=== PATIENT | male | born 1960 | race African-American/Black ===

== ENCOUNTER 2018-08-09 10:55 | Emergency (ER) | payer OTHER ==
[~2018-08-09] VITALS: Ht 172.7 cm; Wt 81.7 kg
--- NOTE | ~2018-08-09 | EKG ---
[place] [address] [facility] [address] ELECTROCARDIOGRAM REPORT Name: MADDI VASQUEZ [id number] Admission: 08/09/18 Attend Phys: Discharge: 08/09/18 Date of : 62 Report #: [id number] THIS REPORT FOR: //name// [facility] ED Test Date: 2018-08-09 Test Time: 11:31:13 Pat Name: MADDI VASQUEZ Department: Room: Gender: M [employer]: PREM : 1960 Requested By: Gissell Vinson Order Number: [id number] MD: Josesito Masters Measurements Intervals [place] Rate: 71 P: 52 CA: 155 QRS: -63 QRSD: 92 T: 34 QT: 360 QTc: 392 Interpretive Statements Sinus rhythm Left anterior fascicular block Abnormal R-wave progression, late transition Compared to ECG 06/07/2016 10:04:51 No significant changes Electronically Signed On 08-10-2018 11:03:04 CDT by Josesito Masters [email or web address] <ELECTRONICALLY SIGNED> By: Josesito Masters MD 08/10/18 1103 1130 30 Josesito Masters MD /EFRAÍN
[~2018-08-09 10:55] MED LIST: CELEBREX 200 M200 M1 PO; GLUCOTROL5 MG PO; IBUPROFEN 600600 M1 PO; METFORMIN HCL500 MG PO; NEXIUM40 MG PO; NORCO 5-325 TA1 EACH PO; PIOGLITAZONE15 MG
[2018-08-09 11:42] LABS: BASOPHILS 1.1 % (0.0-2.0); EOSINOPHILS 1.7 % (0.0-3.0); HEMATOCRIT 40.2 % (42.0-52.0); HEMOGLOBIN 13.5 gm/dL (14.0-18.0); LYMPHOCYTES 29.3 % (24.0-44.0); MCH 27.1 pg (26.0-34.0); MCHC 33.5 g/dL (28.0-37.0); MCV 80.9 fL (80.0-100.0); MONOCYTES 8.5 % (1.0-8.0); PLATELET COUNT 275 thou/uL (150-400); POLYS 59.4 % (36.0-66.0); RBC 4.97 mil/uL (4.50-6.00); RDW 15.6 % (10.5-14.5); WBC 5.1 thou/uL (4.0-11.0)
[2018-08-09 11:53] LABS: ANION GAP 8 mmol/L (7-16); BUN 15 mg/dL (7-18); CALCIUM 10.5 mg/dL (8.5-10.1); CHLORIDE 105 mmol/L (98-107); CO2 27 mmol/L (21-32); CREATININE 0.9 mg/dL (0.7-1.3); GLUCOSE 96 mg/dL (74-106); POTASSIUM 3.9 mmol/L (3.5-5.1); SODIUM 140 mmol/L (136-145)
[2018-08-09 12:01] LABS: ALBUMIN 3.8 g/dL (3.4-5.0); SGOT 17 U/L (15-37); SGPT 26 U/L (30-65); TOTAL BILIRUBIN 0.4 mg/dL (<0.1-1.0); TOTAL PROTEIN 7.5 g/dL (6.4-8.2); TROPONIN-I <0.06 ng/mL (<0.06)
[2018-08-09] MEDS ORDERED: ZANTAC 150MG T150 MG PO (15:27)
== END 2018-08-09 17:33 | disposition home or self-care (01) ==
LOC: ER 10:55
PROVIDERS: Student in an Organized Health Care Education/Training Program
DX: R07.89 Other chest pain (principal); E11.9 Type 2 diabetes mellitus without complications; K21.9 Gastro-esophageal reflux disease without esophagitis; M06.9 Rheumatoid arthritis, unspecified; Z82.49 Family history of ischemic heart disease and other diseases of the circulatory system

== ENCOUNTER 2019-04-15 18:46 | Emergency (ER) | payer OTHER ==
[~2019-04-15] VITALS: Ht 172.7 cm; Wt 83.9 kg
[2019-04-15 18:46] VITALS: BP 124/75
[~2019-04-15 18:46] MED LIST changes: +ZANTAC 150MG T150 MG PO
[2019-04-15] MEDS ORDERED: LISINOPRIL5 MG PO (19:20)
[2019-04-15] MEDS ORDERED: KEFLEX500 M1 PO (19:31)
== END 2019-04-15 19:50 | disposition home or self-care (01) ==
LOC: ER 18:46
DX: T24.232A Burn of second degree of left lower leg, initial encounter (principal); T31.0 Burns involving less than 10% of body surface; E11.9 Type 2 diabetes mellitus without complications; M06.9 Rheumatoid arthritis, unspecified; K21.9 Gastro-esophageal reflux disease without esophagitis